=== PATIENT | male | born 1965 | race Caucasian/White ===

== ENCOUNTER 2017-02-25 14:42 | Emergency (ER) | payer OTHER ==
[~2017-02-25] VITALS: Ht 180.3 cm; Wt 74.8 kg
[2017-02-25 15:08] VITALS: BP 91/56
--- NOTE | 2017-02-25 15:35 | NUR ---
To bed 5
--- NOTE | 2017-02-25 15:41 | NUR ---
Patient being evaluated by physician at bedside.
[2017-02-25 15:53] VITALS: BP 100/65
--- NOTE | 2017-02-25 15:53 | NUR ---
PATIENT PRESENTS TO ED WITH C/O DIZZINESS FOR YEARS BLURRED VISSION, WORSE TODAY WITH N/V X 2 DENIES PAIN DIARRHEA, CLOGGED RT EAR;HX OF LOW BP;SKIN IS PINK/WARM/DRY; AAOX4 WITH EVEN AND STEADY GAIT; LUNGS CLEAR BL; HR EVEN AND REGULAR; PT DENIES ANY FEVER, CP, SOB, OR COUGH AT THIS TIME; PATIENT STATES PAIN OF 0/10 AT THIS TIME; PATIENT POSITIONED FOR COMFORT; HOB ELEVATED; BEDRAILS UP X2; BED DOWN. ALL MONITORS IN PLACED.
[2017-02-25] MEDS ORDERED: NACL 0.9% 1,000 ML IV ONE (15:55)
[2017-02-25 16:23] LABS: BASOPHILS # (AUTO) 0.3 K/uL (0.00-0.22); EOSINOPHILS # (AUTO) 0.1 K/uL (0-0.4); HEMATOCRIT 38.5 % (36-52); MEAN CORPUSCULAR HEMOGLOBIN 33 pg (27-31); MEAN CORPUSCULAR HGB CONC 34 g/dL (33-37); MEAN CORPUSCULAR VOLUME 97 fL (80-94); MONOCYTES # (AUTO) 0.3 K/uL (0.8-1.0); NEUTROPHILS # (AUTO) 2.1 K/uL (1.8-7.7); PLATELET COUNT (AUTO) 263 K/uL (140-450); RED BLOOD CELL COUNT(AUTO) 3.95 MIL/uL (4.20-6.10); RED CELL DISTRIBUTION WIDTH 13.2 % (11.6-13.7); WHITE BLOOD COUNT (AUTO) 3.8 K/uL (4.8-10.8)
[2017-02-25 16:51] LABS: INR 1.1 (0.8-1.2); PARTIAL THROMBOPLASTIN TIME 27.9 secs (22-35.6); PROTHROMBIN TIME 11.2 secs (10.8-13.4)
[2017-02-25 16:58] LABS: ALBUMIN 3.2 g/dL (3.4-5.0); CALCIUM 8.3 mg/dL (8.5-10.1); CARBON DIOXIDE 23.1 mmol/L (21-32); CREATININE 1.2 mg/dL (0.7-1.3); TOTAL BILIRUBIN 0.4 mg/dL (0.0-1.0); TOTAL PROTEIN, SERUM 7.3 g/dL (6.4-8.2)
[2017-02-25 17:00] LABS: LACTIC ACID 1.9 mmol/L (0.4-2.0)
[2017-02-25 17:05] LABS: ANION GAP 15.6 (8-16); POTASSIUM 3.7 mmol/L (3.5-5.1)
== END 2017-02-25 19:14 | disposition home or self-care (01) ==
LOC: MED 14:42
DX: E86.0 Dehydration (principal); K21.9 Gastro-esophageal reflux disease without esophagitis; I10 Essential (primary) hypertension; M17.11 Unilateral primary osteoarthritis, right knee
CPT/HCPCS: 36415; 80053; 83605; 84484; 85025; 85610; 85730; 87040; 93005; 96360; 99285; J7030

== ENCOUNTER 2018-12-05 03:34 | Emergency (ER) | payer MEDICAID, OTHER ==
[~2018-12-05] VITALS: Ht 182.9 cm; Wt 80.3 kg
[2018-12-05 03:37] VITALS: BP 150/96
--- NOTE | 2018-12-05 03:37 | NUR ---
TO BED #07 VIA W/C
--- NOTE | 2018-12-05 03:43 | NUR ---
PT BIB WHEELCHAIR TO BED 7
--- NOTE | 2018-12-05 03:45 | NUR ---
53 YO M BIB SELF PRESENTS TO THE ED C/O LEFT LEG SWELLING THAT STARTED YESTERDAY. SIGNIFICANT SWELLING NOTED TO LEFT CALF AND LEFT FOOT. NO PITTING EDEMA PRESENT. PT DENIES PAIN BUT ADMITS TENDERNESS TO TOUCH ON THE BACK OF HIS CALF. SKIN APPEARS TIGHT AND SLIGHTLY RED. DENIES NUMBNESS/TINGLING. SENSATION AND MOTOR STRENGTH IN TACT. CAP REFILL <3 SECONDS. PEDAL PULSES STRONG, EQUAL BILATERALLY. DENIES CP/SOB. PMH-- DENIES RX-- DENIES PT IS ALERT, CALM, COOPERATIVE, FOLLOWS COMMAND, BEHAVES APPROPRIATELY. BREATHING EVEN, UNLABORED. VSS. NO APPARENT DISTRESS AT THIS TIME. POSITIONED FOR COMFORT. HOB ELEVATED. SIDE RAIL UP X1. BED IN LOWEST POSITION.
--- NOTE | 2018-12-05 03:49 | NUR ---
Dr. Stewart evaluating patient at bedside.
[2018-12-05] MEDS ORDERED: KETOROLAC 60 MG/2 ML VIAL IM ONE (04:00)
--- NOTE | 2018-12-05 04:06 | NUR ---
LAB AT BEDSIDE.
[2018-12-05 04:08] LABS: BASOPHILS # (AUTO) 0.1 K/uL (0.00-0.22); BASOPHILS % (AUTO) 2.6 % (0.0-2.0); EOSINOPHILS # (AUTO) 0.1 K/uL (0-0.4); EOSINOPHILS % (AUTO) 2.5 % (0.0-4.0); HEMOGLOBIN 14.1 g/dL (12.0-18.0); LYMPHOCYTES # (AUTO) 1.9 K/uL (2.0-11.5); LYMPHOCYTES % (AUTO) 39.8 % (20.5-51.1); MEAN CORPUSCULAR HEMOGLOBIN 33 pg (27-31); MEAN CORPUSCULAR HGB CONC 33 g/dL (33-37); MEAN CORPUSCULAR VOLUME 97.9 fL (80-94); MONOCYTES # (AUTO) 0.9 K/uL (0.8-1.0); NEUTROPHILS # (AUTO) 1.8 K/uL (1.8-7.7); NEUTROPHILS % (AUTO) 36.5 % (42.2-75.2); PLATELET COUNT (AUTO) 234 K/uL (140-450); RED BLOOD CELL COUNT(AUTO) 4.29 MIL/uL (4.20-6.10); RED CELL DISTRIBUTION WIDTH 13.7 % (11.6-13.7); WHITE BLOOD COUNT (AUTO) 4.9 K/uL (4.8-10.8)
[2018-12-05 04:16] LABS: ANION GAP 12.4 (8-16); CREATININE 1.1 mg/dL (0.7-1.3); POTASSIUM 3.4 mmol/L (3.5-5.1)
[2018-12-05 04:19] LABS: MONOCYTES % (AUTO) 18.6 % (1.7-9.3)
[2018-12-05 04:22] LABS: ALBUMIN 3.7 g/dL (3.4-5.0); TOTAL BILIRUBIN 0.5 mg/dL (0.0-1.0)
[2018-12-05 04:25] LABS: PROTHROMBIN TIME 10.4 secs (10.8-13.4)
--- NOTE | 2018-12-05 04:44 | NUR ---
Ultrasound at bedside.
[2018-12-05 05:05] VITALS: BP 157/84
== END 2018-12-05 05:05 | disposition home or self-care (01) ==
LOC: MED 03:34
DX: I89.0 Lymphedema, not elsewhere classified (principal); I10 Essential (primary) hypertension
CPT/HCPCS: 36415; 80053; 85025; 85610; 85730; 93971; 96372; 99284; J1885; Q0092

== ENCOUNTER 2018-12-20 15:33 | Emergency (ER) | payer MEDICAID ==
[~2018-12-20] VITALS: Ht 182.9 cm; Wt 81.6 kg
--- NOTE | 2018-12-20 15:41 | NUR ---
PT AMBULATED TO BED 08.
--- NOTE | 2018-12-20 15:41 | NUR ---
BIB SELF. AAO X4 C/O MID CHEST PAIN RADIATING TO L UPPER CHEST. PT HAS COUGH WITH CLEAR PHLEGM X 3 DAYS. FACIAL SYMMETRY, FULL CLEAR SPEECH, PERRLA BRISK 2 MM. EQUAL CRISTINA STRENGTH TO UPPER AND LOWER EXTREMITIES. STEADY GAIT. PT PLACED ON FULL SCALLOP RAKER. PT STATES WANTS TO BE EVALUATED FOR DIABETES, HTN. REPORTS DOES NOT HAVE PCP AND THAT IS WHY HE IS HERE. PAIN 02/18. ER MADE AWARE OF PT STATUS.
[2018-12-20 15:45] VITALS: BP 130/91
--- NOTE | 2018-12-20 15:49 | NUR ---
DR ROBLES AT BEDSIDE FOR PT EVALUATION
--- NOTE | 2018-12-20 16:00 | NUR ---
PT UNABLE TO GIVE URINE SPECIMEN AT THIS TIME
--- NOTE | 2018-12-20 16:21 | NUR ---
LAB AT BEDSIDE
--- NOTE | 2018-12-20 16:28 | NUR ---
PT IS AAO X4. ABLE TO VERBALIZE NEEDS. FULL CLEAR SPEECH. NO SIGNS AND SYMPTOMS OF DISTRESS NOTED.
[2018-12-20 16:31] LABS: HEMATOCRIT 40.7 % (36-52); HEMOGLOBIN 13.8 g/dL (12.0-18.0); MEAN CORPUSCULAR HEMOGLOBIN 33 pg (27-31); MEAN CORPUSCULAR HGB CONC 34 g/dL (33-37); MEAN CORPUSCULAR VOLUME 97.2 fL (80-94); PLATELET COUNT (AUTO) 302 K/uL (140-450); RED BLOOD CELL COUNT(AUTO) 4.18 MIL/uL (4.20-6.10); RED CELL DISTRIBUTION WIDTH 13.3 % (11.6-13.7); WHITE BLOOD COUNT (AUTO) 5.1 K/uL (4.8-10.8)
[2018-12-20 16:45] LABS: ANION GAP 13.9 (8-16); CARBON DIOXIDE 26.2 mmol/L (21-32); CREATININE 1.5 mg/dL (0.7-1.3); POTASSIUM 3.1 mmol/L (3.5-5.1)
--- NOTE | 2018-12-20 16:48 | NUR ---
PT AMBULATED TO THE BATHROOM WITH STEADY GAIT
[2018-12-20 16:51] LABS: ALBUMIN 3.4 g/dL (3.4-5.0); TOTAL BILIRUBIN 0.6 mg/dL (0.0-1.0)
[2018-12-20 16:53] LABS: EOSINOPHILS % (MANUAL) 1 % (0-4); LYMPHOCYTES % (MANUAL) 31 % (20-46); MONOCYTES % (MANUAL) 17 % (5-12)
[2018-12-20] MEDS ORDERED: POTASSIUM CHLORIDE 10 MEQ TABER PO ONE (16:55)
[2018-12-20 17:09] LABS: BARBITURATE, URINE NEG. ng/ml (NEG <=200); BENZODIAZEPINE, URINE NEG. ng/mL (NEG <=200); CANNABINOID, URINE NEG. ng/mL (NEG <=50); COCAINE, URINE NEG. ng/mL (NEG <=300); OPIATE, URINE NEG. ng/mL (NEG <=2000); PHENCYCLIDINE SCREEN,URINE NEG. ng/mL (NEG <=25)
[2018-12-20 17:25] VITALS: BP 128/82
--- NOTE | 2018-12-20 17:31 | NUR ---
Patient discharged with v/s stable. Written and verbal after care instructions given and explained. Patient verbalized understanding. Ambulatory with steady gait. All questions addressed prior to discharge. Advised to follow up with PMD.
== END 2018-12-20 17:31 | disposition home or self-care (01) ==
LOC: MED 15:33
DX: R07.9 Chest pain, unspecified (principal); E87.6 Hypokalemia; R53.1 Weakness; R42 Dizziness and giddiness; I10 Essential (primary) hypertension; F17.200 Nicotine dependence, unspecified, uncomplicated
CPT/HCPCS: 36415; 71045; 80053; 80305; 84484; 85025; 93005; 99284; Q0092

== ENCOUNTER 2019-05-12 08:50 | Emergency (ER) | payer MEDICAID ==
[~2019-05-12] VITALS: Ht 182.9 cm; Wt 79.4 kg
[2019-05-12 08:57] VITALS: BP 161/101
[2019-05-12 09:25] VITALS: BP 158/94
== END 2019-05-12 09:26 | disposition home or self-care (01) ==
LOC: MED 08:50
DX: J45.909 Unspecified asthma, uncomplicated (principal); R10.30 Lower abdominal pain, unspecified; R03.0 Elevated blood-pressure reading, without diagnosis of hypertension; I10 Essential (primary) hypertension; F17.290 Nicotine dependence, other tobacco product, uncomplicated
CPT/HCPCS: 99283

== ENCOUNTER 2019-06-06 21:43 | Emergency (ER) | payer MEDICAID ==
[~2019-06-06] VITALS: Ht 182.9 cm; Wt 81.6 kg
[2019-06-06 21:50] VITALS: BP 140/85
--- NOTE | 2019-06-06 21:55 | NUR ---
TO BED # 03 [facility]
[2019-06-06] MEDS ORDERED: KETOROLAC 60 MG/2 ML VIAL IM ONE (22:10)
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
[2019-06-06 22:47] VITALS: BP 140/85
--- NOTE | 2019-06-06 22:47 | NUR ---
Patient discharged with v/s stable. Written and verbal after care instructions given and explained. Patient alert, oriented and verbalized understanding of instructions. Ambulatory with steady gait. All questions addressed prior to discharge. ID band removed. Patient advised to follow up with PMD. Rx of NORC, MOTRIN WAS given. Patient educated on indication of medication including possible reaction and side effects. Opportunity to ask questions provided and answered.
== END 2019-06-06 22:47 | disposition home or self-care (01) ==
LOC: MED 21:43
DX: S13.4XXA Sprain of ligaments of cervical spine, initial encounter (principal); M54.5 Low back pain; J45.909 Unspecified asthma, uncomplicated; F17.200 Nicotine dependence, unspecified, uncomplicated; V89.2XXA Person injured in unspecified motor-vehicle accident, traffic, initial encounter; Y93.89 Activity, other specified; Y92.89 Other specified places as the place of occurrence of the external cause; Y99.8 Other external cause status
CPT/HCPCS: 96372; 99283; J1885

== ENCOUNTER 2020-04-27 13:13 | Emergency (ER) | payer MEDICAID, OTHER ==
[~2020-04-27] VITALS: Ht 180.3 cm; Wt 71.2 kg
[2020-04-27 13:26] VITALS: BP 100/76
--- NOTE | 2020-04-27 13:32 | NUR ---
AMB TO BED 10
--- NOTE | 2020-04-27 14:01 | NUR ---
55 y/o M presents to ER for syncope episode today at work. Per pt he has been having dizzy spells and blurry vision on and off for a couple of months. Per pt at work today "Everything went black." Pt had an unwitnessed fall. Denies any head pain or head trauma. Pain level 0/10. Vital Signs Stable. Pt placed on cardiac monitors. Allergies: NKA Med hx: none
--- NOTE | 2020-04-27 14:12 | NUR ---
EKG performed at bedside
[2020-04-27 14:36] LABS: HEMATOCRIT 39.5 % (36-52); HEMOGLOBIN 13.3 g/dL (12.0-18.0); MEAN CORPUSCULAR HEMOGLOBIN 34 pg (27-31); MEAN CORPUSCULAR HGB CONC 34 g/dL (33-37); PLATELET COUNT (AUTO) 149 K/uL (140-450); RED BLOOD CELL COUNT(AUTO) 3.95 MIL/uL (4.20-6.10); RED CELL DISTRIBUTION WIDTH 13.3 % (11.6-13.7); WHITE BLOOD COUNT (AUTO) 2.9 K/uL (4.8-10.8)
[2020-04-27 14:50] LABS: ALBUMIN 3.6 g/dL (3.4-5.0); ANION GAP 17.2 (8-16); CARBON DIOXIDE 24.3 mmol/L (21-32); CREATININE 1.3 mg/dL (0.6-1.3); POTASSIUM 3.5 mmol/L (3.5-5.1); TOTAL BILIRUBIN 0.6 mg/dL (0.0-1.0)
--- NOTE | 2020-04-27 15:00 | NUR ---
Pt vital signs stable. Will continue to monitor.
[2020-04-27 15:14] LABS: EOSINOPHILS % (MANUAL) 3 % (0-4); LYMPHOCYTES % (MANUAL) 53 % (20-46); MONOCYTES % (MANUAL) 6 % (5-12)
[2020-04-27 15:40] VITALS: BP 126/83
== END 2020-04-27 15:39 | disposition home or self-care (01) ==
LOC: MED 13:13
DX: R55 Syncope and collapse (principal); R94.5 Abnormal results of liver function studies; N17.9 Acute kidney failure, unspecified
CPT/HCPCS: 36415; 71045; 80053; 83880; 84484; 85025; 93005; 99285; Q0092

== ENCOUNTER 2020-05-10 15:55 | Emergency (ER) | payer OTHER ==
[~2020-05-10] VITALS: Ht 182.9 cm; Wt 69.9 kg
[2020-05-10 16:06] VITALS: BP 112/72
[2020-05-10 17:12] LABS: BILIRUBIN,URINE NEGATIVE (NEGATIVE); BLOOD, URINE NEGATIVE (NEGATIVE); LEUKOCYTE ESTERASE ,URINE NEGATIVE (NEGATIVE); NITRITE, URINE NEGATIVE (NEGATIVE); UGLUCOSE NEGATIVE (NEGATIVE)
[2020-05-10 17:32] LABS: HEMATOCRIT 39.4 % (36-52); HEMOGLOBIN 13.2 g/dL (12.0-18.0); MEAN CORPUSCULAR HEMOGLOBIN 34 pg (27-31); MEAN CORPUSCULAR HGB CONC 34 g/dL (33-37); MEAN CORPUSCULAR VOLUME 100.6 fL (80-94); PLATELET COUNT (AUTO) 165 K/uL (140-450); RED BLOOD CELL COUNT(AUTO) 3.91 MIL/uL (4.20-6.10); WHITE BLOOD COUNT (AUTO) 2.9 K/uL (4.8-10.8)
[2020-05-10 17:45] LABS: ALBUMIN 3.5 g/dL (3.4-5.0); CARBON DIOXIDE 22.5 mmol/L (21-32); CREATININE 1.1 mg/dL (0.6-1.3); POTASSIUM 3.5 mmol/L (3.5-5.1); TOTAL BILIRUBIN 0.8 mg/dL (0.0-1.0)
[2020-05-10 18:06] LABS: EOSINOPHILS % (MANUAL) 2 % (0-4); LYMPHOCYTES % (MANUAL) 52 % (20-46); MONOCYTES % (MANUAL) 14 % (5-12)
[2020-05-10 18:13] LABS: APPEARANCE,URINE CLEAR (CLEAR)
[2020-05-10 18:14] LABS: COLOR,URINE YELLOW (YELLOW)
[2020-05-10 18:15] VITALS: BP 132/91
== END 2020-05-10 18:15 | disposition home or self-care (01) ==
LOC: MED 15:55
DX: R42 Dizziness and giddiness (principal); R94.5 Abnormal results of liver function studies; J45.909 Unspecified asthma, uncomplicated
CPT/HCPCS: 36415; 71045; 80053; 81003; 85025; 93005; 99285; Q0092